=== PATIENT | male | born 1990 ===

== ENCOUNTER 2018-05-20 11:00 | Emergency (ER) | payer SELFPAY ==
[2018-05-20 11:05] VITALS: BMI 22.2
[2018-05-20 11:07] VITALS: RESP 18
--- NOTE | 2018-05-20 12:26 | C.PDOC ---
History Of Present Illness 28-year-old male presents to the ED for evaluation of right ankle and foot pain after sustaining a twisting injury to his right ankle yesterday. Patient reports pain over the ankle and foot. He denies falls, head injury, deformity, weakness, or sensorivascular deficits. Time Seen by Provider: 05/20/18 11:12 Chief Complaint (Nursing): Lower Extremity Problem/Injury History Per: Patient History/Exam Limitations: no limitations Onset/Duration Of Symptoms: Hrs Current Symptoms Are (Timing): Still Present Additional History Per: Patient - Ankle/Foot Description Of Injury: Twisted (right) Past Medical History Reviewed: Historical Data, Nursing Documentation, Vital Signs Vital Signs: Last Vital Signs Temp 98.5 F 05/20/18 11:04 Pulse 65 05/20/18 11:04 Resp 18 05/20/18 11:04 BP 131/78 05/20/18 11:04 Pulse Ox 98 05/20/18 11:04 - Medical History PMH: No Chronic Diseases Surgical History: No Surg Hx Family History: States: Unknown Family Hx - Social History Hx Alcohol Use: No Hx Substance Use: No - Immunization History Hx Tetanus Toxoid Vaccination: Yes (2018) Hx Influenza Vaccination: No Hx Pneumococcal Vaccination: No Review Of Systems Constitutional: Negative for: Weakness Musculoskeletal: Positive for: Foot Pain (right), Other (right ankle pain ) Neurological: Negative for: Weakness, Numbness Physical Exam - Physical Exam Appears: Well, Non-toxic, No Acute Distress Skin: Normal Color, Warm, Dry, No Rash, No Ecchymosis Extremity: Tenderness (overlying right lateral malleolus that extends to the dorsal aspect of foot, over 5th metatarsal bone ), Capillary Refill (less than 2 seconds ), No Deformity Neurological/Psych: Oriented x3, Normal Speech, Normal Sensation ED Course And Treatment O2 Sat by Pulse Oximetry: 98 (on RA) Pulse Ox Interpretation: Normal - Other Rad Right ankle and foot X-Ray: Interpreted by Me, Viewed By Me Interpretation: (-) acute fx or dislocation Progress Note: Right foot XR and right ankle XR ordered. Motrin PO given. On re-eval, pt is afebrile, hemodynamicaly stable. non-toxic. Right ankle: mild tenderness lateral malleolus, no defomrity. FAROM, no neurovascular deficits. Imaging review (-) acute fx or dislocation. Air cast applied to Right ankle. Pt advised and ref. to f/u with Podiatry in 2-3 days for re-eval. Disposition Counseled Patient/Family Regarding: Studies Performed, Diagnosis, Need For Followup - Disposition Referrals: [facility] [Outside] Disposition: HOME/ ROUTINE Disposition Time: 11:40 Condition: STABLE Additional Instructions: RICE-rest, ice, compression for 1 week, elevation Ibuprofen for pain Follow up with podiatry Clinic for further evaluation. 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 - Scribe Statement The provider has reviewed the documentation as recorded by the Scribe (Chandrika Chou) All medical record entries made by the Scribe were at my direction and personally dictated by me. I have reviewed the chart and agree that the record accurately reflects my personal performance of the history, physical exam, medical decision making, and the department course for this patient. I have also personally directed, reviewed, and agree with the discharge instructions and disposition.
[2018-05-20 12:38] VITALS: BP 126/82; PULSE 82; TEMP 98.1
--- NOTE | 2018-05-20 12:41 | RAD ---
Date of service: 05/20/2018 PROCEDURE: Right Ankle Radiographs. HISTORY: injury COMPARISON: Correlation made with concurrent radiographs of the right foot. TECHNIQUE: 3 views obtained. FINDINGS: BONES: Normal. No fracture. JOINTS: Normal. No osteoarthritis. Ankle mortise maintained. Talar dome intact SOFT TISSUES: Normal. OTHER FINDINGS: None. IMPRESSION: No evidence of acute displaced fracture nor dislocation. If symptoms persist or occult fracture suspected clinically recommend repeat radiographs in 7-10 days as most fractures should become radiographically evident in this timeframe.
--- NOTE | 2018-05-20 12:41 | RAD ---
Date of service: 05/20/2018 PROCEDURE: Right Foot Radiographs. HISTORY: Injury COMPARISON: None. TECHNIQUE: 3 views obtained. FINDINGS: BONES: Bone alignment and mineralization are normal. There is no acute displaced fracture or bone destruction. JOINTS: Normal. SOFT TISSUES: Normal. OTHER FINDINGS: None. IMPRESSION: No acute displaced fracture or dislocation.
[2018-05-20 20:48] VITALS: O2SAT 98
== END 2018-05-20 12:41 | disposition home or self-care (01) ==
LOC: C.ER 11:00
DX: S93.401A Sprain of unspecified ligament of right ankle, initial encounter (principal); X50.9XXA Other and unspecified overexertion or strenuous movements or postures, initial encounter